=== PATIENT | male | born 1935 | race Native Hawaiian/Other Pacific Islander ===

== ENCOUNTER 2016-04-15 15:42 | Outpatient (CLI) | payer OTHER ==
[~2016-04-15 15:42] MED LIST: ALLO100T22 PO; AMLO2.5T PO; ASA LOW STR81 MG PO; ASPIRIN ADULT L81 MG OR; B-12100 MCG OR; CELLCEPT250 MG OR; CELLCEPT500 MG OR; DIPH2.5T76 PO; DOXA2TAB PO; EQL CALCIUM OR; FISH OIL ULT1000 MG OR; FURO20TA67 PO; FURO40TA93 PO; LANTUS SOLOSTAR SC; LEVAQUIN500 MG OR; LIPITOR20 MG PO; MAG CITRAT1 XX; MAG OXIDE400 M2 PO; MAG OXIDE400 MG PO; MAGNESIUM400 MG OR; METO50TA63 PO; MULT VITAMIN OR; OMEGA 31000 MG OR; PROGRAF1 MG OR; PROGRAF1 MG PO; TAMS0.4C PO; VIT B12 ER1000 MCG OR
[2016-04-15 17:16] LABS: POTASSIUM 5.1 mmol/L (3.6-5.2)
== END 2016-04-15 22:11 | disposition home or self-care (01) ==
LOC: LAB 15:42
PROVIDERS: Internal Medicine Nephrology
DX: N18.6 End stage renal disease (principal); R97.20 Elevated prostate specific antigen [PSA]
CPT/HCPCS: 80048; 84153

== ENCOUNTER 2016-05-15 17:36 | Emergency (ER) | payer OTHER ==
[~2016-05-15] VITALS: Ht 170.2 cm; Wt 104.3 kg
[2016-05-15 18:15] VITALS: BP 173/62; TEMP 97.8
== END 2016-05-15 18:15 | disposition home or self-care (01) ==
LOC: ED 17:36
PROC: 0HQ3XZZ Repair Left Ear Skin, External Approach (ICD-10-PCS; principal; 2016-05-15)
DX: H92.22 Otorrhagia, left ear (principal); Z85.828 Personal history of other malignant neoplasm of skin
CPT/HCPCS: 99282

== ENCOUNTER 2016-05-22 14:33 | Emergency (ER) | payer OTHER ==
[~2016-05-22] VITALS: Ht 170.2 cm; Wt 105.2 kg
[2016-05-22 14:45] VITALS: BP 139/72; TEMP 98
== END 2016-05-22 14:57 | disposition home or self-care (01) ==
LOC: ED 14:33
DX: Z48.02 Encounter for removal of sutures (principal)

== ENCOUNTER 2016-05-25 16:18 | Emergency (ER) | payer OTHER ==
[~2016-05-25] VITALS: Ht 170.2 cm; Wt 105.2 kg
[2016-05-25 18:39] LABS: PARTIAL THROMBOPLASTIN TIME 25.2 SECONDS (24.5-33.6)
[2016-05-25 18:42] LABS: POTASSIUM 4.5 mmol/L (3.6-5.2)
[2016-05-25 19:25] VITALS: BP 131/44; TEMP 98.8
== END 2016-05-25 19:33 | disposition home or self-care (01) ==
LOC: ED 16:18
DX: M79.604 Pain in right leg (principal); N18.9 Chronic kidney disease, unspecified; I80.3 Phlebitis and thrombophlebitis of lower extremities, unspecified
CPT/HCPCS: 80053; 85610; 85730; 99283

== ENCOUNTER 2016-06-17 14:37 | Outpatient (CLI) | payer OTHER | END 2016-06-17 19:24 | disposition home or self-care (01) | LOC: CT 14:37 | DX: R22.41 Localized swelling, mass and lump, right lower limb (principal); M79.604 Pain in right leg ==

== ENCOUNTER 2016-07-15 14:54 | Outpatient (CLI) | payer OTHER | END 2016-07-15 19:26 | disposition home or self-care (01) | LOC: LAB 14:54 | DX: R97.20 Elevated prostate specific antigen [PSA] (principal) | CPT/HCPCS: 84153 ==

== ENCOUNTER 2016-07-26 09:02 | Outpatient (CLI) | payer OTHER | END 2016-07-26 19:09 | disposition home or self-care (01) | LOC: LABW 09:02 | DX: Z94.0 Kidney transplant status (principal) | CPT/HCPCS: 36415; 80197 ==

== ENCOUNTER 2016-07-28 13:28 | Emergency (ER) | payer OTHER ==
[~2016-07-28] VITALS: Ht 177.8 cm; Wt 97.5 kg
[2016-07-28 13:24] VITALS: TEMP 97.9
[2016-07-28 14:05] LABS: PLATELET COUNT 99 K/uL (142-355)
[2016-07-28 14:23] LABS: POTASSIUM 6.6 mmol/L (3.6-5.2)
[2016-07-28 14:41] VITALS: BP 155/51
== END 2016-07-28 14:41 | disposition home or self-care (01) ==
LOC: ED 13:28
DX: K52.89 Other specified noninfective gastroenteritis and colitis (principal); N18.9 Chronic kidney disease, unspecified; E87.5 Hyperkalemia
CPT/HCPCS: 36415; 80053; 85027; 96360; 99284

== ENCOUNTER 2016-09-17 13:37 | Outpatient (CLI) | payer OTHER | END 2016-09-17 19:10 | disposition home or self-care (01) | LOC: LABW 13:37 | DX: R97.20 Elevated prostate specific antigen [PSA] (principal); Z94.0 Kidney transplant status | CPT/HCPCS: 36415; 80197; 84153 ==

== ENCOUNTER 2016-09-20 10:14 | Outpatient (CLI) | payer OTHER | END 2016-09-20 11:15 | disposition home or self-care (01) | LOC: LAB 10:14 | DX: R19.7 Diarrhea, unspecified (principal) | CPT/HCPCS: 82272; 87015; 87045; 87205; 87328; 87329; 87493; 87899 ==

== ENCOUNTER 2016-10-18 09:30 | Outpatient (CLI) | payer OTHER | END 2016-10-18 10:30 | disposition home or self-care (01) | LOC: LABW 09:30 | DX: Z94.0 Kidney transplant status (principal) | CPT/HCPCS: 36415; 80197 ==

== ENCOUNTER 2016-11-15 09:12 | Outpatient (CLI) | payer OTHER | END 2016-11-15 10:15 | disposition home or self-care (01) | LOC: LABW 09:12 | DX: Z94.0 Kidney transplant status (principal) | CPT/HCPCS: 36415; 80197 ==

== ENCOUNTER 2016-12-09 13:50 | Outpatient (CLI) | payer OTHER | END 2016-12-09 14:04 | disposition short-term general hospital (02) | LOC: AMB 13:50 | DX: R10.84 Generalized abdominal pain (principal) | CPT/HCPCS: A0425; A0429 ==

== ENCOUNTER 2016-12-09 14:10 | Emergency (ER) | payer OTHER ==
[2016-12-09 19:55] LABS: PLATELET COUNT 145 K/uL (142-355)
[2016-12-09 19:56] LABS: POTASSIUM 5.3 mmol/L (3.6-5.2)
== END 2016-12-09 16:03 | disposition short-term general hospital (02) ==
LOC: ED 14:10
PROVIDERS: Family Medicine
DX: R10.84 Generalized abdominal pain (principal); K21.9 Gastro-esophageal reflux disease without esophagitis
CPT/HCPCS: 36415; 80053; 83605; 85027; 87040; 96365; 96376; 99284; J2175; J2405

== ENCOUNTER 2016-12-09 17:07 | Outpatient (CLI) | payer OTHER | END 2016-12-09 18:18 | disposition short-term general hospital (02) | LOC: AMB 17:07 | DX: R10.84 Generalized abdominal pain (principal); K21.9 Gastro-esophageal reflux disease without esophagitis | CPT/HCPCS: A0425; A0429 ==

== ENCOUNTER 2016-12-20 09:12 | Outpatient (CLI) | payer OTHER | END 2016-12-20 19:11 | disposition home or self-care (01) | LOC: LABW 09:12 | DX: Z94.0 Kidney transplant status (principal) | CPT/HCPCS: 36415; 80197 ==

== ENCOUNTER 2017-01-17 08:37 | Outpatient (CLI) | payer OTHER | END 2017-01-17 19:02 | disposition home or self-care (01) | LOC: LABW 08:37 | DX: Z94.0 Kidney transplant status (principal) | CPT/HCPCS: 36415; 80197 ==

== ENCOUNTER 2017-02-21 08:56 | Outpatient (CLI) | payer OTHER | END 2017-02-21 09:58 | disposition home or self-care (01) | LOC: LABW 08:56 | DX: Z94.0 Kidney transplant status (principal) | CPT/HCPCS: 36415; 80197 ==

== ENCOUNTER 2017-03-10 08:38 | Outpatient (CLI) | payer OTHER | END 2017-03-10 19:13 | disposition home or self-care (01) | LOC: LABW 08:38 | DX: Z94.0 Kidney transplant status (principal) | CPT/HCPCS: 36415; 80197 ==

== ENCOUNTER 2017-04-18 08:05 | Outpatient (CLI) | payer OTHER | END 2017-04-18 19:27 | disposition home or self-care (01) | LOC: LABW 08:05 | DX: Z94.0 Kidney transplant status (principal) | CPT/HCPCS: 36415; 80197 ==

== ENCOUNTER 2017-05-23 08:23 | Outpatient (CLI) | payer OTHER | END 2017-05-23 21:57 | disposition home or self-care (01) | LOC: LABW 08:23 | DX: Z94.0 Kidney transplant status (principal) | CPT/HCPCS: 36415; 80197 ==

== ENCOUNTER 2017-06-19 12:38 | Outpatient (CLI) | payer OTHER | END 2017-06-19 22:57 | disposition home or self-care (01) | LOC: LABW 12:38 | DX: Z94.0 Kidney transplant status (principal) | CPT/HCPCS: 80197 ==

== ENCOUNTER 2017-06-23 11:11 | Inpatient (IN) | payer OTHER ==
[~2017-06-23] VITALS: Ht 177.8 cm; Wt 103.0 kg
[2017-06-23 11:18] VITALS: BP 121/37; TEMP 97.3
[2017-06-23 12:18] VITALS: BP 116/36
[2017-06-23 12:50] LABS: PLATELET COUNT 123 K/uL (142-355)
[2017-06-23 13:02] LABS: POTASSIUM 4.6 mmol/L (3.6-5.2)
[2017-06-23 13:08] LABS: PARTIAL THROMBOPLASTIN TIME 24.5 SECONDS (24.5-33.6)
[2017-06-23 13:18] VITALS: BP 164/36; TEMP 97.3
[2017-06-23 17:56] VITALS: BP 157/38; TEMP 98.8; Ht 177.8 cm; Wt 103.0 kg
[2017-06-23 20:02] VITALS: BP 107/31; TEMP 98
[2017-06-23 22:00] VITALS: BP 118/38
[2017-06-24] VITALS: BP 127/42; TEMP 98.3
[2017-06-24 04:00] VITALS: BP 126/39; TEMP 98.1
[2017-06-24 05:23] LABS: PLATELET COUNT 120 K/uL (142-355)
[2017-06-24 05:49] LABS: POTASSIUM 5.4 mmol/L (3.6-5.2)
[2017-06-24 07:55] VITALS: BP 121/31; TEMP 98.4
[2017-06-24 12:00] VITALS: BP 140/92; TEMP 98.4
[2017-06-24 16:00] VITALS: BP 137/36; TEMP 99
[2017-06-24 20:00] VITALS: BP 140/43; TEMP 98.7
[2017-06-25] VITALS: BP 139/42; TEMP 98
[2017-06-25 04:00] VITALS: BP 137/44; TEMP 97.6
[2017-06-25 08:00] VITALS: BP 129/44; TEMP 98.5
[2017-06-25 09:02] LABS: PLATELET COUNT 117 K/uL (142-355)
[2017-06-25 09:39] LABS: POTASSIUM 5.2 mmol/L (3.6-5.2)
[2017-06-25 12:00] VITALS: BP 120/38; TEMP 98.2
[2017-06-25 16:00] VITALS: BP 133/46; TEMP 99
== END 2017-06-25 17:53 | disposition home or self-care (01) | DRG 682 ==
LOC: ED 11:11 → MED/SURG 14:30
PROVIDERS: Emergency Medicine; ADMIT Internal Medicine
PROC: 5A1D70Z Performance of Urinary Filtration, Intermittent, Less than 6 Hours Per Day (ICD-10-PCS; principal; 2017-06-25)
DX: I12.0 Hypertensive chronic kidney disease with stage 5 chronic kidney disease or end stage renal disease (principal); N18.6 End stage renal disease; E11.22 Type 2 diabetes mellitus with diabetic chronic kidney disease; I95.89 Other hypotension; D63.1 Anemia in chronic kidney disease; R22.9 Localized swelling, mass and lump, unspecified; G47.33 Obstructive sleep apnea (adult) (pediatric); K21.9 Gastro-esophageal reflux disease without esophagitis; E11.42 Type 2 diabetes mellitus with diabetic polyneuropathy; I25.10 Atherosclerotic heart disease of native coronary artery without angina pectoris; R51 Headache
CPT/HCPCS: 36415; 36591; 80053; 81000; 82550; 82948; 83036; 83735; 84100; 84484; 85027; 85610; 85730; 93005; 93306; 94760; 96372; 99283; J1644; J1815

== ENCOUNTER 2017-07-08 10:23 | Emergency (ER) | payer OTHER ==
[~2017-07-08] VITALS: Ht 177.8 cm; Wt 103.4 kg
[2017-07-08 10:18] VITALS: TEMP 98
[2017-07-08 11:12] LABS: PLATELET COUNT 150 K/uL (142-355)
[2017-07-08 11:30] LABS: PARTIAL THROMBOPLASTIN TIME 26.7 SECONDS (24.5-33.6)
[2017-07-08 11:49] LABS: POTASSIUM 4.7 mmol/L (3.6-5.2)
[2017-07-08 16:30] VITALS: BP 152/67
== END 2017-07-08 18:28 | disposition short-term general hospital (02) ==
LOC: ED 10:23
PROVIDERS: Emergency Medicine
DX: R00.0 Tachycardia, unspecified (principal); R07.89 Other chest pain; I50.9 Heart failure, unspecified; N18.4 Chronic kidney disease, stage 4 (severe); I48.92 Unspecified atrial flutter; I44.39 Other atrioventricular block; I45.10 Unspecified right bundle-branch block; I45.81 Long QT syndrome
CPT/HCPCS: 80053; 82550; 83880; 84484; 85027; 85379; 85610; 85730; 93005; 99283

== ENCOUNTER 2017-07-16 10:56 | Outpatient (CLI) | payer OTHER | END 2017-07-16 20:56 | disposition home or self-care (01) | LOC: LAB 10:56 | DX: D64.89 Other specified anemias (principal); Z94.0 Kidney transplant status | CPT/HCPCS: 80197; 85014; 85018 ==

== ENCOUNTER 2017-08-13 13:35 | Outpatient (CLI) | payer OTHER | END 2017-08-13 22:03 | disposition home or self-care (01) | LOC: LAB 13:35 | DX: Z94.0 Kidney transplant status (principal) | CPT/HCPCS: 80197 ==

== ENCOUNTER 2018-08-03 12:13 | Outpatient (CLI) | payer OTHER | END 2018-08-03 20:24 | disposition home or self-care (01) | LOC: LAB 12:13 | DX: R51 Headache (principal) | CPT/HCPCS: 85651; 86140 ==

== ENCOUNTER 2018-08-07 14:09 | Outpatient (CLI) | payer OTHER | END 2018-08-07 23:21 | disposition home or self-care (01) | LOC: CT 14:09 | DX: G44.89 Other headache syndrome (principal) ==

== ENCOUNTER 2018-09-15 08:54 | Outpatient (CLI) | payer OTHER | END 2018-09-15 19:01 | disposition home or self-care (01) | LOC: RAD 08:54 | DX: R06.02 Shortness of breath (principal); R06.09 Other forms of dyspnea | CPT/HCPCS: 36600; 82805 ==

== ENCOUNTER 2019-04-01 09:47 | Outpatient (CLI) | payer OTHER | END 2019-04-01 10:03 | disposition short-term general hospital (02) | LOC: AMB 09:47 | DX: R55 Syncope and collapse (principal); R06.09 Other forms of dyspnea; R05 Cough | CPT/HCPCS: A0425; A0427 ==

== ENCOUNTER 2019-04-01 10:05 | Emergency (ER) | payer OTHER ==
[~2019-04-01] VITALS: Ht 177.8 cm; Wt 99.8 kg
[2019-04-01 10:05] VITALS: TEMP 97.9
[2019-04-01 10:33] LABS: PLATELET COUNT 91 K/uL (142-355)
[2019-04-01 10:56] LABS: PARTIAL THROMBOPLASTIN TIME 25.6 SECONDS (24.5-33.6); POTASSIUM 4.5 mmol/L (3.6-5.2)
[2019-04-01 13:05] VITALS: BP 93/38
== END 2019-04-01 13:10 | disposition short-term general hospital (02) ==
LOC: ED 10:14
PROVIDERS: Hospitalist
DX: J18.9 Pneumonia, unspecified organism (principal); N18.6 End stage renal disease; Z99.2 Dependence on renal dialysis; I95.9 Hypotension, unspecified; R06.02 Shortness of breath; I48.91 Unspecified atrial fibrillation; I45.19 Other right bundle-branch block
CPT/HCPCS: 36415; 36600; 80053; 82550; 82805; 83605; 83880; 84484; 85027; 85610; 85730; 87040; 87502; 93005; 94664; 96360; 96365; 96366; 99284; J0456; J0696; J1265; J3370

== ENCOUNTER 2019-04-01 13:24 | Outpatient (CLI) | payer OTHER | END 2019-04-01 14:33 | disposition short-term general hospital (02) | LOC: AMB 13:24 | DX: J18.9 Pneumonia, unspecified organism (principal); I95.9 Hypotension, unspecified; N18.6 End stage renal disease | CPT/HCPCS: A0425; A0427 ==

== ENCOUNTER 2019-04-29 11:01 | Outpatient (CLI) | payer OTHER | END 2019-04-29 22:41 | disposition home or self-care (01) | LOC: RAD 11:01 | DX: Z87.01 Personal history of pneumonia (recurrent) (principal) ==

== ENCOUNTER 2019-04-30 16:39 | Outpatient (CLI) | payer OTHER ==
[2019-04-30 16:56] LABS: PLATELET COUNT 155 K/uL (142-355)
[2019-04-30 17:21] LABS: POTASSIUM 5.9 mmol/L (3.6-5.2)
== END 2019-04-30 19:41 | disposition home or self-care (01) ==
LOC: LAB 16:39
PROVIDERS: Internal Medicine
DX: E11.9 Type 2 diabetes mellitus without complications (principal); N18.6 End stage renal disease
CPT/HCPCS: 80053; 80061; 83036; 84439; 84443; 84550; 85027

== ENCOUNTER 2019-10-20 14:01 | Outpatient (CLI) | payer OTHER | END 2019-10-20 19:10 | disposition home or self-care (01) | LOC: LAB 14:01 | DX: D64.89 Other specified anemias (principal) | CPT/HCPCS: 85014; 85018 ==

== ENCOUNTER 2019-11-19 16:00 | Outpatient (CLI) | payer OTHER | END 2019-11-19 20:56 | disposition home or self-care (01) | LOC: LAB 16:00 | DX: E87.5 Hyperkalemia (principal) | CPT/HCPCS: 84132 ==

== ENCOUNTER 2019-11-22 10:37 | Emergency (ER) | payer OTHER ==
[~2019-11-22] VITALS: Ht 177.8 cm; Wt 99.8 kg
== END 2019-11-22 12:01 | disposition expired ==
LOC: ED 10:37
PROC: 5A12012 Performance of Cardiac Output, Single, Manual (ICD-10-PCS; principal; 2019-11-22)
DX: I46.9 Cardiac arrest, cause unspecified (principal)
CPT/HCPCS: 92950; 96374; 99285; 99291; J0171